=== PATIENT | male | born 1985 | race Caucasian/White ===

== ENCOUNTER 2025-03-10 14:15 | Emergency (ER) | payer SELFPAY ==
[2025-03-10 14:21] VITALS: BP 143/88; PULSE 93; RESP 16; TEMP 37; O2SAT 98; BMI 25.4
--- NOTE | 2025-03-10 16:20 | W.ED.SKABFB ---
HPI - Skin/Abscess/Foreign Bdy General: Chief complaint: Skin/Abscess/Foreign Body Stated complaint: lump on back Time Seen by Provider: 03/10/25 16:15 Source: patient Mode of arrival: ambulatory Limitations: no limitations History of Present Illness: Patient is a 40-year-old male who presents to ED today for evaluation of 2 separate lesions to his back. According to patient history, sounds like these areas have abscessed in the past. At some point he had a culture which grew MRSA. He states he is homeless and living in some type of homeless camp/compound. He states the lesions will intermittently flare requiring antibiotics. They are not actively draining. He has no systemic symptoms. MD complaint: abscess/boil and lesion Onset (ago): week(s) Location: back Severity: mild Relieving factors: none Exacerbating factors: none Context: recent camping and other (homelessness) Associated symptoms: Reports no associated symptoms; Deny chills or fever(s) Treatments prior to arrival: none Related Data Previous Rx's ?Medication ?Instructions ?Recorded linezolid 600 mg tablet 600 mg PO BID 10 days #20 tabs 03/10/25 Allergies Allergy/AdvReac Type Severity Reaction Status Date / Time No Known Allergies Allergy Verified 03/10/25 14:25 Review of Systems Const: Denies: fever(s), chills, body aches, fatigue or malaise Card: Denies: chest pain Resp: Denies: dyspnea GI: Denies: abdominal pain Musc: Denies: neck pain, back pain, extremity pain, extremity swelling or joint swelling Skin/Breast: Reports: sores Neuro: Denies: headache(s), numbness in extremities, weakness in extremities or sensory changes Physical Exam Const: COMMON NORMALS: no acute distress, average body habitus, no limitations, healthy appearing, alert and well nourished GENERAL APPEARANCE: cooperative and disheveled Back/Pelvis: BACK IMAGE (MALE):  1. 2. old appearing previous abscesses; scarred; maybe some mild underlying induration; no fluctuance; no surrounding cellulitis Extremity: GENERAL: Yes normal exam except as noted Neuro: COMMON NORMALS: moves all extremities, no focal motor deficits and no sensory deficits noted SENSORIUM/ORIENTATION: Yes alert Skin: NARRATIVE SKIN EXAM: see above; back lesions Course Vital Signs: Vital signs: Vital Signs Temperature 98.6 F 03/10/25 14:21 Pulse Rate 93 03/10/25 14:21 Respiratory Rate 16 03/10/25 14:21 Blood Pressure 143/88 03/10/25 14:21 Pulse Oximetry 98 03/10/25 14:21 Oxygen Delivery Me thod Room Air 03/10/25 14:21 MDM - Skin/Abscess/Foreign Bdy Medicial Decision Making Patient is specifically requesting abx. He does have a risk of MRSA recurrence as he states other individuals in his camp are infected. Will place on Linezolid. He states he has been on Clinda/Bactrim previously and is immune to these . Medical Records I reviewed the patient's medical records. 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
== END 2025-03-10 16:49 | disposition home or self-care (01) ==
PROVIDERS: Emergency Provider Physician Assistant
DX: Z86.14 Personal history of Methicillin resistant Staphylococcus aureus infection (principal); L98.9 Disorder of the skin and subcutaneous tissue, unspecified
CPT/HCPCS: 99283